=== PATIENT | female | born 1955 | race Caucasian/White ===

== ENCOUNTER → 2019-10-13 | Outpatient (CLI) | payer MEDICARE ==
[~2019-10-13] MED LIST: ACTOS; BIOT1TAB2; FLUT1DIS26; GLPZ5T; METFORMIN; MULTIVITAMIN; PRILOSEC; SIMVASTATIN; TRAM50TA2; TRAM50TA2 PO
== END ==
LOC: RAD 11:48
PROVIDERS: ATTEND Nurse Practitioner Family
DX: J98.4 Other disorders of lung (principal); R91.8 Other nonspecific abnormal finding of lung field; R04.2 Hemoptysis
CPT/HCPCS: 78815; A9552

== ENCOUNTER → 2019-11-02 | Outpatient (CLI) | payer MEDICARE | LOC: LABNPT 05:48 | PROVIDERS: ATTEND Nurse Practitioner Family | DX: Z01.812 Encounter for preprocedural laboratory examination (principal); Z20.828 Contact with and (suspected) exposure to other viral communicable diseases | CPT/HCPCS: 87635 ==

== ENCOUNTER 2019-11-03 05:28 | Outpatient (RCR) | payer MEDICARE ==
[~2019-11-03] VITALS: Ht 175.3 cm; Wt 76.8 kg
== END 2019-11-03 10:40 | disposition home or self-care (01) ==
LOC: PREOP 05:28
PROVIDERS: ATTEND Internal Medicine Critical Care Medicine
DX: Z01.818 Encounter for other preprocedural examination (principal)

== ENCOUNTER 2019-11-05 06:53 | Day surgery (SDC) | payer MEDICARE ==
[2019-11-05] VITALS (12 sets, daily range): BP systolic 101–129; BP diastolic 48–68
[~2019-11-05] VITALS: Ht 175.3 cm; Wt 76.8 kg
[2019-11-05] MEDS ORDERED: LIDOCAINE UROJET 2% GEL 10 ML PKG TOP ONE (06:54)
[2019-11-05] MEDS ORDERED: LIDOCAINE PF 2% 5 ML (XYLOCAINE) VIAL INJ ONE (06:54)
[2019-11-05] MEDS ORDERED: LIDOCAINE PF 1% 2 ML AMP IJ ONE (06:54)
[2019-11-05] MEDS ORDERED: NS IV 500 ML 500 ML ONE (07:09)
[2019-11-05] MEDS ORDERED: fentaNYL INJECTION 100 MCG/2 ML AMP IVP ONE (07:15)
[2019-11-05] MEDS ORDERED: NS IV 500 ML 500 ML IV PRN (07:15)
[2019-11-05] MEDS ORDERED: MIDAZOLAM 5 MG/5 ML (VERSED) VIAL IV ONE (07:15)
[2019-11-05] MEDS ORDERED: MIDAZOLAM 5 MG/5 ML (VERSED) VIAL ONE ×2 (07:35)
[2019-11-05] MEDS ORDERED: fentaNYL INJECTION 100 MCG/2 ML AMP ONE (07:35)
--- NOTE | 2019-11-05 09:10 | Diagnostic Imaging Report ---
EXAM: Portable erect AP chest at 8:32 AM INDICATION Post bronchoscopy The PET/CT exam performed on 10/13/2019 noted a non-hypermetabolic 8 x 17 mm fairly well-defined oval density in the right upper lobe. That finding is difficult to appreciate on this exam. The lungs are generally clear. There is no evidence for failure, pneumonia or for a pleural effusion. There is no sign of a pneumothorax either. The heart size is within normal limits and the mediastinum is not widened. The osseous structures are intact. IMPRESSION: 1. There is no evidence for an acute cardiopulmonary abnormality. 2. The small nodular density in the right upper lung seen on the recent PET/CT exam cannot be identified on this study. 3. Unless there are previous CT examinations available to demonstrate that the finding in the right upper lung is stable, then a short-term (three-month) follow-up CT chest exam would be recommended for further evaluation. Dictated by: Dictated on workstation # [id number]
--- NOTE | 2019-11-05 09:11 | Pulmonary Procedures ---
Pulmonary Procedures Date of Procedure Date of Service: Nov 05, 2019 Bronch Bronchoscopy with bronchoalveolar lavage (BAL), transbronchial washes and, brushes. Preop DX: cough with lung nodule Postop DX: same no endobronchial mass Complications: none After informed consent obtained and formal time out pt was sedated using Fentanyl and Versed. Bronchoscope was advanced through the nare and vocal cords. 1% lidocaine was used to anesthetize vocal cords, epiglottis, alex, and left/right main stem bronchus. An anatomical tour was undertaken down to the segmental bronchi bilaterally. No endobronchial lesions noted. From the RML a bronchoalveolar lavage (BAL), transbronchial washes and, brushes were obtained. Pt tolerated procedure well. No complications noted. Stat CXR is pending. DIEGO MARTI DO Nov 05, 2019 09:11
--- NOTE | 2019-11-05 09:12 | Progress Note-Pre Operative ---
Pre-Operative Progress Note H&P Reviewed The H&P was reviewed, patient examined and no changes noted. Time Seen by Provider: 07:30 Date H&P Reviewed: Nov 05, 2019 Time H&P Reviewed: 07:30 Pre-Operative Diagnosis: cough, lung nodule DIEGO MARTI DO Nov 05, 2019 09:12
--- NOTE | 2019-11-05 09:13 | Pre-Op Note & Conscious Sedat ---
Pre-Operative Progress Note H&P Reviewed The H&P was reviewed, patient examined and no changes noted. Date H&P Reviewed: Nov 05, 2019 Time H&P Reviewed: 07:30 Conscious Sedation Pre-Proced Time 07:30 ASA Score 3 For ASA 3 and 4: Consider anesthesia and medical clearance. Also, for patients with a history of failed moderate sedation consider anesthesia. Airway Lungs Heart ASA score ASA 1: a normal healthy patient ASA 2: a patient with a mild systemic disease (mid diabetes, controlled hypertension, obesity ASA 3: a patient with a severe systemic disease that limits activity (angina, COPD, prior Myocardial infarction) ASA 4: a patient with an incapacitating disease that is a constant threat to life (CHF, renal failure) ASA 5: a moribund patient not expected to survive 24 hrs. (ruptured aneurysm) ASA 6: a declared brain- patient whose organs are being harvested. For emergent operations, add the letter E after the classification Mallampati Classification Grade 3 Sedation Plan Analgesia, Amnesia, Plan communicated to team members, Discussed options with patient/fam, Discussed risks with patient/fam The patient is an appropriate candidate to undergo the planned procedure, sedation, and anesthesia. The patient immediately re-assessed prior to indication. DIEGO MARTI DO Nov 05, 2019 09:13
== END 2019-11-05 09:20 | disposition home or self-care (01) ==
LOC: ENDO 06:53
PROVIDERS: ATTEND Internal Medicine Critical Care Medicine
DX: R91.1 Solitary pulmonary nodule (principal); R05 Cough; Z79.84 Long term (current) use of oral hypoglycemic drugs; Z79.899 Other long term (current) drug therapy; Z88.0 Allergy status to penicillin; Z88.2 Allergy status to sulfonamides; Z88.5 Allergy status to narcotic agent; Z88.1 Allergy status to other antibiotic agents; Z91.048 Other nonmedicinal substance allergy status; Z91.018 Allergy to other foods; Z91.030 Bee allergy status; Z91.038 Other insect allergy status
CPT/HCPCS: 71045; 87015; 87070; 87101; 87116; 87205; 87206; 94640

== ENCOUNTER 2020-11-07 05:35 | Outpatient (RCR) | payer MEDICARE, MEDICAID ==
[~2020-11-07] VITALS: Ht 175.3 cm; Wt 74.9 kg
[2020-11-08] MEDS ORDERED: CETI10TA49 PO (18:20)
[2020-11-08] MEDS ORDERED: ALOG25TA2 PO (18:20)
[2020-11-08] MEDS ORDERED: CHOL400T PO (18:20)
[2020-11-08] MEDS ORDERED: MOME0.13 IH (18:20)
[2020-11-08] MEDS ORDERED: MECO10005 PO (18:20)
[2020-11-08] MEDS ORDERED: CALC600T91 PO (18:20)
[2020-11-08] MEDS ORDERED: PREG150C46 PO (18:27)
[2020-11-08] MEDS ORDERED: IPRA3AMP31 IH (18:27)
[2020-11-08] MEDS ORDERED: OMG1KC PO (18:27)
[2020-11-08] MEDS ORDERED: NITR100C10 PO (18:27)
[2020-11-08] MEDS ORDERED: SIMV40TA25 PO (18:27)
[2020-11-08] MEDS ORDERED: FLUT15.845 NS (18:27)
[2020-11-08] MEDS ORDERED: METF-399 PO (18:27)
[2020-11-08] MEDS ORDERED: LATA7.5D OP (18:27)
[2020-11-08] MEDS ORDERED: RT-ALBUINH IH (18:27)
[2020-11-08] MEDS ORDERED: LEVO75TA PO (18:27)
[2020-11-08] MEDS ORDERED: TRZ50T PO (18:27)
[2020-11-08] MEDS ORDERED: GLBR5T PO (18:27)
[2020-11-08] MEDS ORDERED: SPIR25TA5 PO (18:27)
== END 2020-11-07 16:09 | disposition home or self-care (01) ==
LOC: PREOP 05:35
PROVIDERS: ATTEND Surgery
DX: Z01.818 Encounter for other preprocedural examination (principal)
CPT/HCPCS: 87635

== ENCOUNTER 2020-11-09 06:55 | Day surgery (SDC) | payer MEDICARE, MEDICAID ==
[2020-11-09] VITALS (12 sets, daily range): BP systolic 109–140; BP diastolic 58–83
[~2020-11-09] VITALS: Ht 175.3 cm; Wt 74.9 kg
[~2020-11-09 06:55] MED LIST changes: +ALOG25TA2 PO; +CALC600T91 PO; +CETI10TA49 PO; +CHOL400T PO; +FLUT15.845 NS; +GLBR5T PO; +IPRA3AMP31 IH; +LATA7.5D OP; +LEVO75TA PO; +MECO10005 PO; +METF-399 PO; +MOME0.13 IH; +NITR100C10 PO; +OMG1KC PO; +PREG150C46 PO; +RT-ALBUINH IH; +SIMV40TA25 PO; +SPIR25TA5 PO; +TRZ50T PO
--- OUTSIDE RECORDS SUMMARY | 2020-11-09 06:58 | XMS REPORT | Clinical Summary ---
Author Author [facility] Organization [facility] Address Unknown Phone Unavailable Care Team Providers Care Doughnut Maker Name Role Phone PCP Unavailable Allergies Not on File Medications Not on file Active Problems Not on file Social History Date Tobacco Use Types Packs/Day Years Used Never Assessed Sex Assigned at Date Recorded Not on file Last Filed Vital Signs Not on file Plan of Treatment Not on file Results Not on filefrom Last 3 Months
[2020-11-09] MEDS ORDERED: LIDOCAINE/EPI 1%-1:100,000 (XYLOCAINE) 10 ML ONE (07:29)
[2020-11-09] MEDS ORDERED: MONT10TA32 PO (07:36)
[2020-11-09] MEDS: LACTATED RINGERS 1,000 ML IV PRN ×2 (07:40→08:50)
[2020-11-09] MEDS ORDERED: ceFAZolin INJECTION 1,000 MG in WATER (STERILE) FOR INJECTION 10 ML IV ONE (07:45)
[2020-11-09] MEDS ORDERED: ONDANSETRON 4 MG/2 ML (SDV) Z0FRAN ONE ×2 (07:49→07:55)
[2020-11-09] MEDS ORDERED: FAMOTIDINE 20MG/2ML IV (PEPCID) ONE (07:49)
[2020-11-09] MEDS ORDERED: SEVOFLURANE (ULTANE) 15 ML INHAL SOLN ONE ×2 (07:55→08:47)
[2020-11-09] MEDS ORDERED: ROCURONIUM 10 MG/ML 5 ML SYRINGE IV ONE (07:55)
[2020-11-09] MEDS ORDERED: LIDOCAINE PF 2% 5 ML (XYLOCAINE) VIAL ONE (07:55)
[2020-11-09] MEDS ORDERED: MIDAZOLAM 2 MG/2 ML (VERSED) VIAL ONE (07:55)
[2020-11-09] MEDS ORDERED: proPOfol 200 MG/20 ML (DIPRIVAN) VIAL IV ONE (07:55)
[2020-11-09] MEDS ORDERED: fentaNYL INJ 100 MCG/2 ML AMP ONE (07:55)
[2020-11-09] MEDS ORDERED: ONDANSETRON 4 MG/2 ML (SDV) Z0FRAN IVP ONE (08:00)
[2020-11-09] MEDS ORDERED: FAMOTIDINE 20MG/2ML IV (PEPCID) IVP ONE (08:00)
[2020-11-09] MEDS ORDERED: CLINDAMYCIN 600 MG/50 ML IVPB 50 ML IV ONE ×2 (08:04→08:15)
--- NOTE | 2020-11-09 08:06 | Progress Note-Pre Operative ---
Pre-Operative Progress Note H&P Reviewed The H&P was reviewed, patient examined and no changes noted. Time Seen by Provider: 08:01 Date H&P Reviewed: Nov 09, 2020 Time H&P Reviewed: 08:01 Pre-Operative Diagnosis: Cholelithiasis/Cholecystitis KAILA CONTE DO Nov 09, 2020 08:06
[2020-11-09] MEDS ORDERED: GLYCOPYRROLATE 0.2 MG/ML (ROBINUL) 2 ML VIAL ONE (08:46)
[2020-11-09] MEDS ORDERED: NEOSTIGMINE 3 MG/3 ML VIAL ONE (08:46)
--- NOTE | 2020-11-09 08:47 | Progress Note-Post Operative ---
Post-Operative Progess Note Surgeon (s)/Materials And Corrosion Engineer (s) Surgeon KAILA CONTE DO Materials And Corrosion Engineer: Fabricio Pre-Operative Diagnosis Cholelithiasis/Cholecystitis Post-Operative Diagnosis same Procedure & Operative Findings Date of Procedure 11/09/20 Procedure Performed/Findings PROCEDURE: Laparoscopic cholecystectomy with intraoperative cholangiogram. COMPLICATIONS: None. PROCEDURE: The patient was taken to the operating suite and was prepped and draped in sterile fashion. A surgical pause was performed. Just superior to the umbilicus, a 12 mm incision was made. Dissection was taken down to the fascia, which was then scored and grasped with a Herman and the abdomen was then entered. A 0 Vicryl suture was placed in a [id number] fashion and a Angeles trocar was placed and secured. Pneumoperitoneum was achieved. A 5mm trochar place in the subxyphoid and 2 in the right upper quadrant. The gallbladder was then grasped and elevated. The cystic duct, and cystic artery were then dissected out. Clip was placed on the distal portion of the cystic duct which was then partially transected. An arrow catheter was inserted into the duct. The cholangiogram was then performed. No filing defects and contrast made its way into the duodenum. Catheter removed. Clips were placed on proximal portion of the cystic duct and then the duct was then transected. Clips were placed along the proximal and distal portion of the cystic artery which was then transected. Hook cautery was used to dissect the gallbladder from the gallbladder fossa achieving hemostasis. The gallbladder was placed in an Endobag and removed through the 12 mm trocar site. The abdomen was then reinspected. Copious amounts of irrigation were used to irrigate the abdomen and there were no signs of active bleeding. Hemostasis had been achieved. The 12 mm fascial defect was then closed with 0 Vicryl suture that had been placed in a [id number] fashion. The abdomen was then desufflated, the trocars were removed. The abdomen was then washed and dried. The skin was then closed using 4-0 Monocryl in a subcuticular fashion. The abdomen was washed and dried and Skin Affix was place over incisions. Patient tolerated the procedure well without any complications and was taken to the recovery room in stable condition. Dr. Regalado assisted on this case helping to make incisions, close incisions, identify anatomy and hold anatomy out of the way. Anesthesia Type GET Estimated Blood Loss Estimated blood loss (mL): scant Specimens/Packing Specimens Removed GB and contents KAILA CONTE DO Nov 09, 2020 08:47
[2020-11-09] MEDS ORDERED: TRAM50TA3 PO (08:50)
--- NOTE | 2020-11-09 08:51 | Discharge Inst-Surgical ---
Discharge Inst-Surgical Depart Medication/Instructions New, Converted or Re-Newed RX: Other (use home meds, Ibuprofen or tylenol) Patient Instructions Follow up Appt: Make appointment for 1 week. [phone] Instructions: No lifting greater than 20 pounds. No strenuous activity. May shower in 24 hours, no tub bath or soaking. Use incentive spirometer at home as directed. No Smoking Skin/Wound Care: May remove bandages in am. You need to leave the Dermabond on incision it will fall off on it's own. Symptoms to Report: Appetite Changes, Extremity Discoloration, Numbness/Tingling, Swelling Increased, Bleeding Excessive, Eyesight Changes, Pain Increased, Urine Color Change, Constipation(Persistent), Fever over 101 degree F, Pain/Pressure in chest, Urinating Difficulty, Cough Up/Vomit Blood, Heart Beat Irreg/Pounding, Pain/Pressure in jaw, Cramps in feet or legs, Lightheadedness, Pain/Pressure in shoulder, Diarrhea(Persistent), Memory Changes Suddenly, Questions/Concerns, Weight gain consecutive days, Dizziness/Fainting, Nausea/Vomiting, Shortness of Breath, Weight gain over 2 pounds If questions or concerns contact your physician Or seek help at emergency department. Activity Activity Instructions: Avoid Stress to Incision Driving Instructions: No Driving/Refer to Diet Discharge Diet: Avoid Fatty Foods, Low Fat/Low Cholesterol Diet After 24 Hours: Clear Liquid if Nauseous If Any Problems/Questions/Issu: Contact Your Physician, Go to Emergency Room Skin/Wound Care Infection Signs and Symptoms: Increased Redness, Foul Odor of Wound, Increased Drainage, Skin Itchy or Has a Rash, Increased Swelling, Temperature Above 101 F Wound Care Comment: heating pad to shoulder or neck tonight for pain Bathing Instructions: Shower Stitches/[place]/Dermabond Dis: Dermabond Ice Pack: Ice On and Off Site KAILA CONTE DO Nov 09, 2020 08:51
--- NOTE | 2020-11-09 09:03 | Progress Note-Post Operative ---
Post-Operative Progess Note Surgeon (s)/Math Specialist (s) Surgeon KAILA CONTE DO Math Specialist: none Pre-Operative Diagnosis Gastritis Post-Operative Diagnosis Gastritis Hiatal hernia tortuous esophagus Procedure & Operative Findings Date of Procedure 11/09/20 Procedure Performed/Findings EGD with bx PROCEDURE NOTE: After informed consent was obtained, the patient was brought to the endoscopy suite, placed in bed in left lateral decubitus position. She was administered IV sedation by the COMBINER OPERATOR who then monitored vitals the entire time, heart rate, blood pressure and pulse ox and the scope was inserted down the mouth through the esophagus into the stomach. On the way down, noted a tortuous esophagus and took a picture on the way out. Pushed into the stomach and noted a lot of retained food. Pushed past the antrum into the duodenum. Duodenum looked good. Pulled back and did a biopsy of antrum, then retroflexed the scope, saw a small hiatal hernia, took a picture of this and then pulled the scope into the GE junction and then did a biopsy of the GE junction. Pushed the scope back into the stomach, suctioned all the air out of the stomach. At this point pulled the scope up the esophagus and out the mouth. The patient tolerated the procedure, and she was sent to PACU. Anesthesia Type GET, done at end of Lap mohamud Estimated Blood Loss Estimated blood loss (mL): scant Specimens/Packing Specimens Removed antral bx GE jxn bx KAILA CONTE DO Nov 09, 2020 09:03
--- NOTE | 2020-11-09 09:03 | Endoscopy Discharge Instruct ---
Endo Procedure/Findings Findings 1.: Gastritis 2.: Hiatal Hernia Discharge Instructions - Activity: You might feel a little sleepy until tomorrow. This is due to the medicine you received to relax you. Until tomorrow, you should: NOT drive a car, operate machinery or power tools. NOT drink any alcoholic beverages. NOT make any important decisions or sign importortant papers. Do not return to work until tomorrow, unless otherwise instructed. Resume previous activities tomorrow. Diet: Start by taking liquids. If you tolerate liquids, advance to solid food. 1.: EGD in 3 years Notify Physician - If you experience excessive bleeding, unusual abdominal pain, fever, or chest pain, contact your doctor immediately. KAILA CONTE DO Nov 09, 2020 09:03
[2020-11-09] MEDS ORDERED: fentaNYL INJ 100 MCG/2 ML AMP IVP ONE (09:30)
[2020-11-09] MEDS ORDERED: MEPERIDINE (DEMEROL) INJ 50 MG/ML IVP ONE (09:30)
[2020-11-09] MEDS ORDERED: ONDANSETRON 4 MG/2 ML (SDV) Z0FRAN IVP PRN (09:30)
--- NOTE | 2020-11-09 09:49 | Diagnostic Imaging Report ---
Indication: Fluoroscopy during intraoperative nucleogram. Fluoroscopy was provided in the OR during intraoperative cholangiogram. 8 seconds of fluoroscopic time was utilized. 30 images were obtained demonstrating contrast being injected via the cystic duct remnant. There is contrast within intrahepatic and extra hepatic bile ducts. Contrast flows into the duodenum. No filling defects are seen to suggest retained stones. IMPRESSION: Fluoroscopy during intraoperative cholangiogram. Dictated by: Dictated on workstation # [id number]
== END 2020-11-09 12:50 | disposition home or self-care (01) ==
LOC: SDC 06:55
PROVIDERS: ATTEND Surgery
DX: K80.10 Calculus of gallbladder with chronic cholecystitis without obstruction (principal); K29.50 Unspecified chronic gastritis without bleeding; K44.9 Diaphragmatic hernia without obstruction or gangrene; J43.9 Emphysema, unspecified; E11.9 Type 2 diabetes mellitus without complications; E78.5 Hyperlipidemia, unspecified; E03.9 Hypothyroidism, unspecified; M81.0 Age-related osteoporosis without current pathological fracture; M79.7 Fibromyalgia; M32.9 Systemic lupus erythematosus, unspecified; Z79.890 Hormone replacement therapy; Z79.899 Other long term (current) drug therapy; Z79.84 Long term (current) use of oral hypoglycemic drugs; Z88.1 Allergy status to other antibiotic agents; Z88.8 Allergy status to other drugs, medicaments and biological substances; Z86.73 Personal history of transient ischemic attack (TIA), and cerebral infarction without residual deficits; Z88.0 Allergy status to penicillin; Z11.2 Encounter for screening for other bacterial diseases
CPT/HCPCS: 76000; 82947; 87081